=== PATIENT | male | born 1965 | race Two or more races ===

== ENCOUNTER 2019-02-06 16:07 | Outpatient (CLI) | payer OTHER | END 2019-02-06 16:51 | disposition home or self-care (01) | LOC: RAD 16:07 | DX: R06.09 Other forms of dyspnea (principal) ==

== ENCOUNTER 2022-09-04 07:30 | Outpatient (CLI) | payer OTHER | END 2022-09-04 07:37 | disposition home or self-care (01) | LOC: NUCLEAR 07:30 | PROVIDERS: ATTEND Internal Medicine Cardiovascular Disease | DX: I20.8 Other forms of angina pectoris (principal) ==